=== PATIENT | female | born 1945 | race Hispanic/Latino ===

== ENCOUNTER 2019-03-27 07:55 | Observation (INO) | payer MEDICARE ==
[2019-03-22 14:20] LABS: BASOPHILS % 0.1 % (0.0-1.0); EOSINOPHILS # (AUTO) 0.1 (0.0-0.4); EOSINOPHILS % 0.8 % (0.0-6.0); HEMOGLOBIN 10.2 g/dL (12.0-16.0); LYMPHOCYTES # (AUTO) 1.3 (1.0-3.2); LYMPHOCYTES % 8.3 % (18.0-39.1); MEAN CORPUSCULAR HEMOGLOBIN 28.8 pg (28-32); MEAN CORPUSCULAR HGB CONC 31.9 g/dL (31-35); MEAN CORPUSCULAR VOLUME 90.4 fL (81-99); MONOCYTES # (AUTO) 0.9 (0.2-0.8); MONOCYTES % 5.7 % (4.4-11.3); NEUTROPHILS # (AUTO) 13.4 (2.1-6.9); NEUTROPHILS % 84.4 % (38.7-80.0); PLATELET COUNT 517 x10e3/uL (140-360); RED BLOOD COUNT 3.54 x10e6/uL (3.6-5.1); RED CELL DISTRIBUTION WIDTH 13.9 % (11.7-14.4)
[2019-03-22 14:32] LABS: INR 0.97; PROTHROMBIN TIME 13.4 seconds (11.9-14.5)
[2019-03-22 14:39] LABS: ALBUMIN 2.3 g/dL (3.5-5.0); ALBUMIN/GLOBULIN RATIO 0.5 (0.8-2.0); ANION GAP 14.9 mmol/L (8-16); CALCIUM 9.8 mg/dL (8.4-10.2); CREATININE, SERUM 1.73 mg/dL (0.57-1.11); POTASSIUM 3.9 mmol/L (3.5-5.1)
[2019-03-27] VITALS (14 sets, daily range): BP systolic 90–132; BP diastolic 52–69
[~2019-03-27] VITALS: Ht 149.9 cm; Wt 67.1 kg
[~2019-03-27 07:55] MED LIST: ALLOPURINOL300 MG PO; ASPIR 8181 MG PO; ATORVASTATIN CA20 MG PO; CELEBREX200 MG PO; DOCUSATE SODIU100 MG PO; FENOFIBRATE145 MG PO; FERROUS SULFAT325 MG PO; FUROSEMIDE40 MG PO; GABAPENTIN300 MG PO; LEVOTHYROXINE88 MCG PO; MECLIZINE HCL12.5 MG PO; METOPROLOL SUCC25 MG PO; OMEGA 3 FISH O1 EACH PO; PANTOPRAZOLE SO40 MG PO
[2019-03-27] MEDS ORDERED: HEPARIN SOD (PORCINE) 1000 UNIT/ML 30ML ONE (09:33)
[2019-03-27] MEDS ORDERED: HEPARIN SOD/SOD CHLORIDE 2,000 ML ONE (09:34)
[2019-03-27] MEDS ORDERED: FENTANYL CITRATE/PF 100MCG/2 ML INJ ONE ×2 (09:34→10:58)
[2019-03-27] MEDS ORDERED: IOPAMIDOL 370 MG/ML 200 ML INFUS..BTL INJ ONE (09:34)
[2019-03-27] MEDS ORDERED: LIDOCAINE HCL 2% LOCAL 20 ML VIAL ONE (09:34)
[2019-03-27] MEDS ORDERED: MIDAZOLAM HCL 2 MG/2 ML VIAL ONE ×3 (09:34→11:03)
[2019-03-27] MEDS ORDERED: NITROGLYCERIN/D5W 200 MCG/ML 250 ML ONE (09:35)
[2019-03-27] MEDS ORDERED: SODIUM CHLORIDE 0.9% 1000ML 1,000 ML ONE ×2 (09:35→14:13)
[2019-03-27] MEDS ORDERED: VERAPAMIL HCL 2.5 MG/ML 2 ML VIAL ONE (09:36)
--- NOTE | 2019-03-27 12:20 | NUR ---
1220p Received pt to room #10 ,bedside report received from MARTIN Galindo. Alert oriented and appropriate, PERRLA, respirations even and unlabored to room air. Pulses x4 extremities equal and strong. Pedal pulses PT/DP X4 and marked. Cap fill brisk < 3 sec. RT femoral MYNX site and rt radial TR band intact No gross issues pain,pallor,pressure or dysrhythmia.Noted drop b/p and and hematoma Angela ,research technologist held 15min with stasis maintained OK to decrease TR band at 1300pm Bed ordered in tele tracker by Nadir SALAZAR Skin warm and dry integrity appears D/I. IV 20g to left wrist, presents healthy w/o s/s of infiltration or complaint. Abdomen soft and supple. pt offered toileting, denies need to urinate or defecate. No personal affects with patient. Family daughter at bedside. Pt and family verbalizes understanding of POC. Currently w/o complaint of pain or need. Patient introduced to cath team and brief summary provided to team.jesi/martin
--- NOTE | 2019-03-27 13:00 | NUR ---
1300 RADIAL Compression removal: Initial Cuff volume 12 cc 1300p -2cc Removed No hematoma/bleeding noted with normal neurovascular function. 1315p -5cc Removed No hematoma/ bleeding noted with normal neurovascular function. 1330 -5cc Removed No hematoma/bleeding noted with normal neurovascular function. Air removal completed. Stasis achieved sterile 2x2,Tegaderm, Coban dressing No hematoma, bleeding noted with normal neurovascular function. Wrist splint in place. Pt instructed on POC. Ds/Rn
--- NOTE | 2019-03-27 13:30 | NUR ---
1330 f/o bed request Currently in Tele tacker ready to move TR band off and Rt groin stable No gross issues pain, pallor,pressure or dysrhythmia.Bedrest completed 1500pm. House Supv informed MS2 will post bed when available. Family remains at bedside. jesi/rn
--- NOTE | 2019-03-27 13:45 | NUR ---
1345p Dr Johnson phoned, noticed b/p low 90 systolic asymptomatic, Hob lowered. This was s/p procedure LHC ,no fix Dr Johnson case and waiting for observation tele bed for tonight 1000cc Ns infusing via controller at 250cchr.Orders read reduce to 70cchr NS ds/rn
--- NOTE | 2019-03-27 14:45 | NUR ---
1445 Transferred to [facility] rm 206 via stretcher and tele pt infusing 250cchr Ns till bag completed the 70cchr. Diet tray ordered for delivery rm 206. Dc instructions for tr band splint and Mynx handout given to daughter. Pt downtime up at 3pm. Stable vs greater 100 systolic with ivs infusing. Denies Cp or SOB. No gross issues pain pallor pressure or dysrhythmia. Normal neuro vascular function to rt wrist. Potential dc in am after Md verification. Zack given phone report and face to face handoff. Pt left in room with family. Call light at bedside,bed in low position and side rails up Aware must ask for assistance to bathroom ds/rn
[2019-03-27] MEDS ORDERED: NON-FORMULARY MEDICATION (Celecoxib (Celebrex) 200 MG) PO SCH (17:00)
[2019-03-27] MEDS ORDERED: GABAPENTIN 300 MG CAP PO PRN (17:00)
[2019-03-27] MEDS: SODIUM CHLORIDE 0.9% 1000ML 1,000 ML IV SCH (17:17)
[2019-03-27] MEDS: METOPROLOL SUCCINATE 25 MG TAB XL PO SCH (17:17)
[2019-03-27] MEDS: FERROUS SULFATE 325 MG TAB PO SCH (17:17)
[2019-03-27] MEDS: CELECOXIB 200 MG CAP PO SCH (17:17)
[2019-03-27] MEDS: DOCUSATE SODIUM 100 MG CAP PO SCH (17:17)
[2019-03-27] MEDS ORDERED: SODIUM CHLORIDE 0.9% 1000ML 1,000 ML IV SCH (18:15)
--- NOTE | 2019-03-27 19:10 | NUR ---
PATIENT RECEIVED. PATIENT IS RESTING IN BED, AA0X3. RES EVEN AND UNLABORED. NO ACUTE DISTRESS NOTED. RIGHT GROIN DRESSING NOTED, DRY AND INTACT. RIGHT WRIST DRESSING NOTED, DRY AND INTACTTELE IN PLACE. CALL LIGHT WITHIN REACH. INSTRUCT TO CALL FOR ASSISTANCE. BED ALARM IS ON FOR FALL RISK. FAMILY AT BED SIDE. BED LOW/LOCKED. CONTINUE TO MONITOR CLOSELY
[2019-03-27] MEDS: OMEGA 3 POLYUNSAT FATTY ACIDS 1000 MG SOFTGEL PO SCH (20:56)
[2019-03-27] MEDS: MECLIZINE HCL 12.5 MG TAB PO SCH (20:56)
[2019-03-27] MEDS ORDERED: ATORVASTATIN 40 MG TAB PO SCH (21:00)
[2019-03-28] VITALS: BP 110/56
[2019-03-28 04:00] VITALS: BP 111/55
[2019-03-28 05:14] LABS: BASOPHILS % 0.2 % (0.0-1.0); EOSINOPHILS # (AUTO) 0.2 (0.0-0.4); EOSINOPHILS % 1.3 % (0.0-6.0); HEMOGLOBIN 7.2 g/dL (12.0-16.0); LYMPHOCYTES # (AUTO) 2.2 (1.0-3.2); LYMPHOCYTES % 17.5 % (18.0-39.1); MEAN CORPUSCULAR HEMOGLOBIN 28.3 pg (28-32); MEAN CORPUSCULAR HGB CONC 31.6 g/dL (31-35); MEAN CORPUSCULAR VOLUME 89.8 fL (81-99); MONOCYTES % 8.5 % (4.4-11.3); NEUTROPHILS # (AUTO) 8.8 (2.1-6.9); NEUTROPHILS % 71.8 % (38.7-80.0); PLATELET COUNT 513 x10e3/uL (140-360); RED BLOOD COUNT 2.54 x10e6/uL (3.6-5.1); RED CELL DISTRIBUTION WIDTH 14.4 % (11.7-14.4)
[2019-03-28 05:38] LABS: ALBUMIN 1.8 g/dL (3.5-5.0); ALBUMIN/GLOBULIN RATIO 0.6 (0.8-2.0); ANION GAP 8.9 mmol/L (8-16); CREATININE, SERUM 1.32 mg/dL (0.57-1.11); POTASSIUM 3.9 mmol/L (3.5-5.1)
[2019-03-28 05:39] LABS: HEMATOCRIT 22.8 % (34.2-44.1)
[2019-03-28] MEDS ORDERED: LEVOTHYROXINE SODIUM 88 MCG TAB PO SCH (06:00)
[2019-03-28 07:40] VITALS: BP 115/58
[2019-03-28] MEDS: SODIUM CHLORIDE 0.9% 1000ML 1,000 ML IV SCH (07:44)
[2019-03-28] MEDS ORDERED: PANTOPRAZOLE SOD 40 MG TABEC PO SCH (09:00)
[2019-03-28] MEDS ORDERED: ASPIRIN 81 MG CHEW TAB PO SCH (09:00)
[2019-03-28] MEDS ORDERED: ALLOPURINOL 300 MG TAB PO SCH (09:00)
[2019-03-28] MEDS ORDERED: ATORVASTATIN 20 MG TAB PO SCH (09:00)
[2019-03-28] MEDS ORDERED: FENOFIBRATE 145 MG TAB PO SCH (09:00)
[2019-03-28] MEDS: FERROUS SULFATE 325 MG TAB PO SCH (09:11)
[2019-03-28] MEDS: MECLIZINE HCL 12.5 MG TAB PO SCH (09:11)
[2019-03-28] MEDS: DOCUSATE SODIUM 100 MG CAP PO SCH (09:11)
[2019-03-28] MEDS: CELECOXIB 200 MG CAP PO SCH (09:11)
[2019-03-28] MEDS: OMEGA 3 POLYUNSAT FATTY ACIDS 1000 MG SOFTGEL PO SCH (09:12)
[2019-03-28] MEDS: METOPROLOL SUCCINATE 25 MG TAB XL PO SCH (09:13)
[2019-03-28 09:23] VITALS: BP 115/58
--- NOTE | 2019-05-24 14:53 | Operative Report ---
DATE OF PROCEDURE: 03/27/2019 SURGEON: Brandon Johnson MD CARDIAC CATHETERIZATION REPORT INDICATIONS FOR PROCEDURE: Chest pain. PREPROCEDURE ASSESSMENT: Risks, benefits, and alternatives of treatment were explained to the patient prior to the procedure. Informed consent was obtained and documented in the medical record. MEDICATIONS: Please see nursing notes for medications administered throughout the procedures. PROCEDURES PERFORMED: 1. Coronary angiography. 2. Left heart catheterization. 3. Attempted DAIRY TESTER PCI to the RCA, unsuccessful. PROCEDURE DETAILS: The patient was brought to the cardiac catheterization laboratory in a fasting state. Right wrist was prepped and draped in a sterile fashion. A 6-Palestinian Slender sheath was inserted in right radial artery using modified Seldinger technique. Coronary angiography was performed using a 5-Palestinian María Radial catheter. Left heart catheterization was performed using a 5-Palestinian pigtail catheter. This demonstrated in-stent DAIRY TESTER of the mid to distal RCA that was collateralized from the left system, otherwise no significant CAD. We decided to proceed with attempted DAIRY TESTER PCI of the RCA for the DAIRY TESTER PCI. IV boluses of heparin were given to maintain ACT near 300. A 6-Palestinian JR4 guiding catheter was used which provided adequate support. We attempted to wire the lesion first using a run-through floppy wire followed by Fielder XT and finally Confianza Pro 12 made some headway and we were able to cross the lesion with a Confianza; however, we were unable to advance any balloons or micro catheters over the wire into the distal RCA. DAIRY TESTER attempt was aborted at this point, all wires were removed. Final angiogram demonstrated no dissection, spasm, or perforation. The patient tolerated the procedure well. There were no immediate complications. Access site was closed using a TR band device. SIGNIFICANT FINDINGS: Right dominant coronary system with in-stent DAIRY TESTER of the mid to distal RCA. Collateralization to the RCA from left circumflex and LAD systems. Left system demonstrates [id number] plaquing with no obstructive CAD. LV end-diastolic pressure 9 mmHg. No gradient across the aortic valve. GRAFTS AND IMPLANTS: None. SPECIMEN REMOVED: None. COMPLICATIONS: None. ESTIMATED BLOOD LOSS: 20 mL. FINAL RECOMMENDATIONS: 1. Continue optimal medical therapy and risk factor control. 2. Follow up in clinic 2 weeks post procedure. MD CHHAYA Kirkpatrick/SHAHNAZ /[id number]
== END 2019-03-28 10:05 | disposition home or self-care (01) ==
LOC: CATH LAB 07:55 → CATH LAB V 11:55 → MED/SURG2 14:30
PROVIDERS: ADMIT Internal Medicine; ATTEND Internal Medicine
DX: I25.118 Atherosclerotic heart disease of native coronary artery with other forms of angina pectoris (principal); I10 Essential (primary) hypertension; I25.2 Old myocardial infarction; D64.9 Anemia, unspecified; M19.90 Unspecified osteoarthritis, unspecified site; E11.9 Type 2 diabetes mellitus without complications; E78.00 Pure hypercholesterolemia, unspecified; Z83.3 Family history of diabetes mellitus; Z82.49 Family history of ischemic heart disease and other diseases of the circulatory system; Z84.1 Family history of disorders of kidney and ureter; Z82.3 Family history of stroke; Z01.812 Encounter for preprocedural laboratory examination; Z79.82 Long term (current) use of aspirin
CPT/HCPCS: 93458; 96360; C9607; 36415; 80053; 82948; 85025; 85610; 96361; 99152; 99153; C1769; C1887; G0378; J1644; J2001; J2250; J3010; J7030; Q9967